=== PATIENT | male | born 1985 | race Caucasian/White ===

== ENCOUNTER 2017-07-30 18:10 | Emergency (ER) | payer OTHER ==
[2017-07-30] MEDS ORDERED: LIDOCAINE HCL 1% MPF 30 SOL INFIL ONE (18:24)
[2017-07-30] MEDS ORDERED: LIDOCAINE HCL 1% MPF 30 SOL ONE (18:25)
[2017-07-30 18:41] VITALS: BP 124/82; PULSE 94; RESP 20; TEMP 98.6; O2SAT 97
[2017-07-30] MEDS ORDERED: TDAP VACCINE 0.5 ML SUS IM ONE ×2 (18:41→18:59)
== END 2017-07-30 19:38 | disposition home or self-care (01) | DRG 605 ==
LOC: ED 18:10
DX: S61.216A Laceration without foreign body of right little finger without damage to nail, initial encounter (principal)
CPT/HCPCS: 12001; 73140; 90471; 90715; 99284; A6402; J2001